=== PATIENT | male | born 1955 ===

== ENCOUNTER 2024-04-09 06:31 | Observation (INO) ==
[~2024-04-09 06:31] MED LIST: NS 0.45% 1000 ml BAG 1,000 ML IV SCH; Naloxone 0.4 mg VIAL 0.4 mg/ml 1 ml VIAL IV PRN; fentaNYL 100 mcg/2 ml 50 MCG/ML VIAL IV PRN
[2024-04-09] MEDS ORDERED: ceFAZolin 2 GM PREMIX 2 GM/50 ML BAG ONE (07:04)
[2024-04-09] MEDS ORDERED: Tranexamic Acid 1 GM/100ML BAG 2,000 MG/200 ML BAG IV ONE (07:04)
[2024-04-09 07:07] LABS: Rapid COVID-19 Molecular Undetected (Undetected)
[2024-04-09] MEDS: Buffered Lidocaine 1% SYRIN 1 ml INTRADERM ONE (07:09)
[2024-04-09] MEDS: Acetaminophen IV 1 GM/100ML 1,000 MG/100 ML BAG IV ONE (07:09)
[2024-04-09] MEDS: Lactated Ringers 1000 ml BAG 1,000 ML IV SCH ×2 (07:13→14:15)
[2024-04-09] MEDS ORDERED: Lidocaine 2% PF 5 ML VIAL ONE (08:19)
[2024-04-09] MEDS ORDERED: Propofol 10 MG/ML 20 ML BTL ONE (08:19)
[2024-04-09] MEDS ORDERED: Phenylephrine IV 10 MG/ML 1 ml VIAL ONE (08:19)
[2024-04-09] MEDS ORDERED: fentaNYL 100 mcg/2 ml 50 MCG/ML VIAL ONE (08:19)
[2024-04-09] MEDS ORDERED: Midazolam 2 mg/2 ml VIAL 1 mg/ml 2 ml VIAL (2 mg) ONE ×2 (08:19→09:41)
[2024-04-09] MEDS ORDERED: ROPIVACAINE 5 MG/ML 30 ML BTL (0.5%) ONE (09:04)
[2024-04-09] MEDS ORDERED: Rocuronium 50 mg VIAL 10 mg/ml 5 ml VIAL (50 mg) ONE ×2 (09:52→10:41)
[2024-04-09] MEDS ORDERED: Ondansetron 4 mg VIAL 2 MG/ML 2 ml VIAL IV PRN (10:16)
[2024-04-09] MEDS ORDERED: Calcium Carb (TUMS) 500 mg CHEW TAB PO PRN (10:16)
[2024-04-09] MEDS ORDERED: Lactulose 30 ml UDC PO PRN (10:16)
[2024-04-09] MEDS ORDERED: Morphine 2 MG/ML SYRINGE IV PRN (10:16)
[2024-04-09] MEDS ORDERED: Ondansetron ODT 4 mg TAB 4 MG TAB PO PRN (10:16)
[2024-04-09] MEDS ORDERED: Magnesium Hydroxide LIQ 30 ML UDC PO PRN (10:16)
[2024-04-09] MEDS ORDERED: Acetaminophen IV 1 GM/100ML 1,000 MG/100 ML BAG IV ONE (10:22)
[2024-04-09] MEDS ORDERED: Ondansetron 4 mg VIAL 2 MG/ML 2 ml VIAL ONE ×2 (10:25→13:11)
[2024-04-09] MEDS ORDERED: Dexamethasone IV 4 MG/ML VIAL 1 ml VIAL ONE (10:25)
[2024-04-09] MEDS ORDERED: Sodium Chloride 0.9% 10 ML ONE (10:29)
[2024-04-09] MEDS ORDERED: Phenylephrine 40 mcg/mL 10mL (400mcg) SYRINGE ONE ×2 (11:59)
[2024-04-09] MEDS: Ondansetron 4 mg VIAL 2 MG/ML 2 ml VIAL IV PRN (13:14)
[2024-04-09] MEDS: ceFAZolin 2 GM PREMIX 2 GM/50 ML BAG IV SCH (17:34)
[2024-04-09] MEDS ORDERED: Magnesium Hydroxide LIQ 30 ML UDC PO SCH (21:00)
[2024-04-10] MEDS ORDERED: Vitamin THERAPEUTIC TAB PO SCH (09:00)
== END 2024-04-09 17:56 | disposition home or self-care (01) ==
LOC: SSU 06:31 → OR 06:31
PROVIDERS: ADMIT Orthopaedic Surgery Adult Reconstructive Orthopaedic Surgery; ATTEND Orthopaedic Surgery Adult Reconstructive Orthopaedic Surgery